=== PATIENT | female | born 1995 | race Hispanic/Latino ===

== ENCOUNTER 2024-09-16 09:10 | Emergency (ER) | payer OTHER, BC ==
[~2024-09-16] VITALS: Ht 144.8 cm; Wt 110.2 kg
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
[2024-09-16] MEDS: ketOROlac 15MG/ML VIAL (15MG/ML) IM ONE (09:41)
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
[2024-09-16] MEDS ORDERED: MELO-108 PO (10:58)
--- NOTE | 2024-09-16 11:10 | HMCIMG ---
Cervical spine 2 views History: trauma, injury Comparison: none FINDINGS: C1 through the top of T1 are seen on the lateral view. The prevertebral soft tissues are normal. There are no fractures or dislocation C1-C7. There is straightening of the normal cervical lordosis consistent with spasm. The disc spaces are normal as is the distance between the arch of C1 and the dens. The spinolaminar line is smooth and the spinous process tips intact. The AP view of the cervical spine is unremarkable. IMPRESSION: Cervical spasm.
[2024-09-16 11:16] VITALS: BP 131/85; PULSE 88; RESP 16; TEMP 98.8; O2SAT 97
--- NOTE | 2024-09-16 11:28 | HMCIMG ---
Exam Type: LUMBAR SPINE 2-3VWS Clinical Information: trauma, injury Comparison: None Findings: Exam of the lumbosacral spine demonstrates no evidence of fracture, subluxation, or significant degenerative change. The alignment of the spine is normal. The disc spaces are intact. The facet joints are preserved without significant degenerative changes Bone mineralization is normal. Impression: Normal exam of the lumbosacral spine.
== END 2024-09-16 11:15 | disposition home or self-care (01) ==
LOC: EDH 09:10
DX: S13.4XXA Sprain of ligaments of cervical spine, initial encounter (principal); M54.50 Low back pain, unspecified; I10 Essential (primary) hypertension; E66.9 Obesity, unspecified; M19.90 Unspecified osteoarthritis, unspecified site; Z98.890 Other specified postprocedural states; V89.2XXA Person injured in unspecified motor-vehicle accident, traffic, initial encounter; Y93.89 Activity, other specified; Y92.488 Other paved roadways as the place of occurrence of the external cause; Y99.8 Other external cause status
CPT/HCPCS: 99284; 72040; 72100; 73030; 96372; J1885